=== PATIENT | female | born 2005 | race Two or more races ===

== ENCOUNTER 2025-03-13 17:20 | Emergency (ER) | payer OTHER, SELFPAY ==
--- NOTE | ~2025-03-13 | US_ITS ---
CLINICAL HISTORY: CHolecysitis? US abdomen limited Comparison: None provided Findings: The gallbladder is contracted. Gallbladder wall is normal in thickness measuring 0.2 cm. Negative sonographic Ferrell's sign. No stones or sludge within the gallbladder. Common bile duct is 2 mm in diameter. IMPRESSION: Contracted, normal appearance of the gallbladder. This document has been electronically signed by: Urbano Johnson MD on 03/13/2025 19:33:39
[2025-03-13 17:26] VITALS: BP 122/67; PULSE 81; RESP 17; TEMP 36.2; O2SAT 97; BMI 23.9
--- NOTE | 2025-03-13 17:32 | ED_ITS ---
HPI - General Adult General Chief complaint: Abdominal Pain Stated complaint: Abdominal pain Time Seen by Provider: 03/13/25 19:37 Source: patient Mode of arrival: ambulatory Limitations: no limitations History of Present Illness ED Provider: Dr. Pablo Mcginnis HPI narrative: 19-year-old female history of appendectomy who presents emergency department for evaluation of abdominal pain x4 days. Patient states that her pain started suddenly proximally 4 days prior. The pain has been constant but waxes and wanes in intensity. She describes the pain is a sharp stabbing pain that does radiate to her back. The pain in his not related to eating. She denied nausea, vomiting or diarrhea. She states she tried antacids with no relief. The patient has had a decreased appetite and decreased oral intake. Patient is wearing a sling and swath to her left arm, she states she was playing volleyball 4 days prior in injured her left wrist and her left rotator cuff. She has not been taking NSAIDs. Related Data Previous Rx's ?Medication ?Instructions ?Recorded aluminum hydrox-magnesium carb 254 10 ml PO QID PRN dy spepsia #355 mL 03/13/25 mg-237.5 mg/5 mL oral suspension (Gaviscon Extra Strength) omeprazole 20 mg capsule,delayed 20 mg PO DAILY 30 day s #30 caps 03/13/25 release Allergies Allergy/AdvReac Type Severity Reaction Status Date / Time No Known Allergies Allergy Verified 03/13/25 17:29 Review of Systems 2 Review of Systems: Yes all other systems are reviewed and are negative PMFSH Social History Social History Smoked in Last 30 Days: No Use of substances other than those prescribed or required for medical reasons: No Advance Directives: No Advance Directives Information Provided: No Do you have a plan to hurt others: No Plan Patient : No Physical Exam ED Vital Signs: Vital Signs - 24 hr 03/13/25 17:26 03/13/25 20:44 Temperature 97.2 F 97.2 F Pulse Rate 81 81 Respiratory Rate 17 17 Blood Pressure 122/67 122/67 Pulse Oximetry 97 97 Oxygen Delivery Method Room Air Room Air BMI result Body Mass Index 23.9 Vital signs were normal Exam: General: Awake, alert in no distress Head: Normocephalic, atraumatic EENT: PERRL, Lids normal, sclera normal, conjunctiva normal, nose normal , ears normal, throat without erythema or exudates Neck: Supple, no adenopathy Lung: breath sounds symmetric, no wheezing, rales or rhonchi Chest: symmetric movement, nontender Heart: regular rate and rhythm, normal S1, S2 no murmurs or rubs Abdomen: soft, moderate right upper quadrant tenderness with a negative Ferrell sign, moderate epigastric tenderness, mild left lower and right lower quadrant tenderness, nondistended, normal bowel sounds, no rebound, no voluntary or involuntary guarding Back: no vertebral tenderness, no CVAT Extremities: no deformities, left wrist in a Velcro splint, left arm is in a sling and swath Neuro: Awake, alert, oriented, normal speech, cranial nerves intact, moves all extremities symmetrically Psych: Pleasant, cooperative Course Course Course Narrative: RME: 19-year-old female history of right shoulder rotator cuff injury presents to ED for epigastric abdominal pain radiating to the back. It has been going on for the past 4 days. Patient denies any nausea vomiting diarrhea. Positive for epigastric tenderness on palpation Medical Decision Making Medical Decision Making MDM Narrative: 19-year-old female history of appendectomy who presents emergency department for evaluation of abdominal pain x4 days. Patient states that her pain started suddenly proximally 4 days prior. The pain has been constant but waxes and wanes in intensity. She describes the pain is a sharp stabbing pain that does radiate to her back. The pain in his not related to eating. She denied nausea, vomiting or diarrhea. She states she tried antacids with no relief. The patient has had a decreased appetite and decreased oral intake.Patient is wearing a sling and swath to her left arm, she states she was playing volleyball 4 days prior in injured her left wrist and her left rotator cuff. She has not been taking NSAIDs. Vital signs were normal. Patient has right upper quadrant and epigastric tenderness with mild lower abdominal tenderness. No rebound. Differential diagnosis: ?Includes but is not limited to peptic ulcer disease, gastritis, pancreatitis, biliary disease Course: My independent interpretation patient's laboratory evaluation is as follows: CBC revealed normocytic anemia with an H&H of 11.3 and 34.0. Glucose elevated 116. LFTs were normal. Lipase was normal. Quantitative beta-hCG was negative. Ultrasound of the right upper quadrant revealed no abnormalities to explain the patient's pain and a negative sonographic Ferrell sign. Patient's presentation is most consistent with gastritis and I did discuss this with the patient. The patient was started on Prilosec 20 mg once a day and extra-strength Gaviscon 10 cc 4 times a day as needed for abdominal pain. She was given printed and verbal instructions and discharged home. Admission/Observation Consideration of admission/observation: Escalation of care including admission/observation considered (Yes) Lab Data MDM Lab Attestation statement: I reviewed the patient's lab results. 03/13/25 17:48 03/13/25 17:48 Labs: Lab Results 03/13/25 Range/Units 17:48 WBC 7.7 (4.8-10.8) X10*3/uL RBC 4.15 L (4.20-5.50) X10*6/uL Hgb 11.3 L (12.0-16.0) g/dl Hct 34.0 L (37.0-47.0) % MCV 81.9 (80.0-98.0) fL MCH 27.2 (27.0-33.0) pg MCHC 33.2 (31.0-35.0) g/dl RDW 13.7 (11.0-16.0) % Plt Count 278 (160-400) X10*3/uL MPV 10.4 (9.4-12.3) fL Immature Gran % (Auto) 0.9 H (0.0-0.4) % Neut % (Auto) 61.2 (45-73) % Lymph % (Auto) 27.4 (20-40) % [place] % (Auto) 7.3 (2-11) % Eos % (Auto) 2.7 (0-4) % Baso % (Auto) 0.5 (0-2) % Lymph # (Auto) 2.1 (1.2-4.9) X10*3/uL [place] # (Auto) 0.6 (0.1-1.2) X10*3/uL Eos # (Auto) 0.2 (0.0-0.4) X10*3/uL Baso # (Auto) 0.0 (0.0-0.2) X10*3/uL Abs Immat Gran (auto) 0.07 H (0.00-0.03) X10*3/uL Absolute Neuts (auto) 4.7 (2.0-8.3) x10*3/uL Absolute Nucleated RBC 0.020 H (0.0-0.012) X10*3/uL Nucleated RBC % (auto) 0.3 H (0.0-0.2) /100WBC Sodium 142 (135-145) mmol/L Potassium 3.7 (3.3-5.1) mmol/L Chloride 110 H (96-108) mmol/L Carbon Dioxide 23 (22-29) mmol/L Anion Gap 13 (12-20) BUN 8 L (9-16) mg/dL Creatinine 0.67 (0.5-1.4) mg/dL Estim Creat Clear Calc 105.9 Estimated GFR > 60 Random Glucose 116 H (60-115) mg/dL Calcium 8.9 (8.4-10.2) mg/dL Total Bilirubin 0.4 (0.0-1.0) mg/dL AST 23 (5-31) U/L ALT 14 (0-31) U/L Alkaline Phosphatase 67 (39-117) U/L Total Protein 6.9 (6.5-8.0) g/dL Albumin 4.4 (3.5-5.0) g/dL Lipase 30 (8-78) U/L Beta HCG, Quant < 2 mIU/mL Influenza Type A (PCR) NEGATIVE (Negative) Influenza Type B (PCR) NEGATIVE (Negative) RSV RNA Qual (PCR) NEGATIVE (Negative) SARS-CoV-2 RNA (RT-PCR) NEGATIVE (Negative) S. pyogenes GrpA SUSAN Negative (Negative) Radiology Impression Discussion of test interpretation with radiology: I have reviewed the radiologist's reading. Radiologist Impression: US abdomen limited Comparison: None provided Findings: The gallbladder is contracted. Gallbladder wall is normal in thickness measuring 0.2 cm. Negative sonographic Ferrell's sign. No stones or sludge within the gallbladder. Common bile duct is 2 mm in diameter. IMPRESSION: Contracted, normal appearance of the gallbladder. This document has been electronically signed by: Urbano Johnson MD on 03/13/2025 19:33:39 Prescription Management I considered prescription management with: Other (Proton pump inhibitor: Prilosec, antacid: Extra-strength Gaviscon) Discharge Plan Discharge Clinical Impression: Gastritis Patient Disposition: Home, Self-Care Instructions: Gastritis (ED) Additional Instructions: Your blood work revealed mild anemia with a your hemoglobin of 11.3 and your hematocrit of 34. This is most likely caused by your menstrual periods and iron deficiency. Take a multivitamin with iron daily for the next 3 months and this should improve your hematocrit and hemoglobin. The rest of your blood work was unremarkable. We did a blood test on you and this was negative. Your exam and symptoms are consistent with inflammation of your stomach (gastritis). Take Prilosec (omeprazole) 20 mg pills, 1 pill once a day for 1 month. ?This medication shuts off your acid production and lets the inflammation in your stomach and esophagus heal. Take extra-strength Gaviscon 10 mL (2 tsp) 4 times a day as needed for abdominal pain. Follow-up with your doctor in 2 days. Please return to the emergency department if your symptoms get worse or if you develop any symptoms that are concerning to you. Prescriptions: New omeprazole 20 mg capsule,delayed release(DR/EC) 20 mg PO DAILY 30 Days Qty: 30 0RF Gaviscon Extra Strength 254-237.5 mg/5 mL suspension 10 ml PO QID PRN (Reason: dyspepsia) Qty: 355 0RF Interventions: ED Discharge Assessment Last Done: 03/13/25 20:44 Discharge Date/Time: 03/13/25 20:45 Print Language: Frisian
[2025-03-13 17:54] LABS: MANUAL DIFF FLAG NO
[2025-03-13 18:03] LABS: IDNOW Serial# 55D5AD1C; Strep A Nucleic Acid Negative (Negative)
[2025-03-13 18:06] LABS: Hematocrit 34.0 % (37.0-47.0); Hemoglobin 11.3 g/dl (12.0-16.0); Imm Gran Abs Auto 0.07 X10*3/uL (0.00-0.03); Imm Gran Pct Auto 0.9 % (0.0-0.4); Lymphocytes Absolute Auto 2.1 X10*3/uL (1.2-4.9); Mean Corpuscular HGB Conc 33.2 g/dl (31.0-35.0); Mean Corpuscular Hemoglobin 27.2 pg (27.0-33.0); Mean Corpuscular Volume 81.9 fL (80.0-98.0); NRBC Abs Auto 0.020 X10*3/uL (0.0-0.012); NRBC Pct Auto 0.3 /100WBC (0.0-0.2); Platelet Count 278 X10*3/uL (160-400); Red Blood Count 4.15 X10*6/uL (4.20-5.50); White Blood Count 7.7 X10*3/uL (4.8-10.8)
[2025-03-13 18:19] LABS: Alanine Aminotransferase 14 U/L (0-31); Albumin Level 4.4 g/dL (3.5-5.0); Alkaline Phosphatase 67 U/L (39-117); Anion Gap 13 (12-20); Aspartate Amino Transferase 23 U/L (5-31); Blood Urea Nitrogen 8 mg/dL (9-16); Calcium 8.9 mg/dL (8.4-10.2); Carbon Dioxide 23 mmol/L (22-29); Chloride 110 mmol/L (96-108); Creatinine Clr Calc Pharmacy 105.9; Estimated Glomerular Filt Rate > 60; Lipase 30 U/L (8-78); Potassium 3.7 mmol/L (3.3-5.1); Sodium 142 mmol/L (135-145); Total Protein 6.9 g/dL (6.5-8.0)
[2025-03-13 18:33] LABS: Resp Syncy Virus RNA Qual PCR NEGATIVE (Negative); SARS COV2 PCR INHOUSE NEGATIVE (Negative)
[2025-03-13 20:44] VITALS: BP 122/67; PULSE 81; RESP 17; TEMP 36.2; O2SAT 97
== END 2025-03-13 20:45 | disposition home or self-care (01) ==
PROVIDERS: Physician Assistant; Emergency Provider Emergency Medicine Emergency Medical Services; PCP Internal Medicine
DX: K29.70 Gastritis, unspecified, without bleeding (principal); R10.11 Right upper quadrant pain; Z03.818 Encounter for observation for suspected exposure to other biological agents ruled out
CPT/HCPCS: 76705; 80053; 83690; 84702; 85025; 87637; 87651; 99283; 99284

== ENCOUNTER → 2025-03-13 18:23 | Outpatient (BNV) | payer MEDICAID, SELFPAY | PROVIDERS: Emergency Provider Emergency Medicine Emergency Medical Services; Visit Provider Radiology Diagnostic Radiology | DX: K81.9 Cholecystitis, unspecified (principal) | CPT/HCPCS: 76705 ==